=== PATIENT | female | born 1955 | race Caucasian/White ===

== ENCOUNTER 2024-07-12 22:30 | Emergency (ER) | payer OTHER ==
[~2024-07-12] VITALS: Ht 157.5 cm; Wt 68.0 kg
--- NOTE | 2024-07-13 00:25 | NUR ---
CC LEFT WRIST DEFORMITY S/P TRIP AND FALL AT THE [facility]ARK.
[2024-07-13] MEDS ORDERED: HYDROCODONE/APAP 10/325MG TABLET ONE (01:18)
[2024-07-13] MEDS: HYDROCODONE/APAP 10/325MG TABLET PO ONE (01:21)
[2024-07-13] MEDS ORDERED: PROPOFOL 20 ML IV ONE (02:30)
--- NOTE | 2024-07-13 02:59 | NUR ---
Consent signed for the procedure, MD henry
[2024-07-13] MEDS: PROPOFOL 200 MG/20 ML VIAL IV ONE (03:45)
--- NOTE | 2024-07-13 03:45 | NUR ---
Diprivan 50mg IVP given
--- NOTE | 2024-07-13 03:47 | NUR ---
Left wrist reduction initiated by Dr. Scott
[2024-07-13] MEDS ORDERED: NAPR-1009 PO (04:00)
--- NOTE | 2024-07-13 04:10 | NUR ---
Xray at bedside
--- NOTE | 2024-07-13 04:13 | NUR ---
Left arm splint applied with arm sling
--- NOTE | 2024-07-13 04:45 | NUR ---
Patient discharged to home in stable condition. Written and verbal after care instructions given. Patient verbalizes understanding of instruction. IV removed. Catheter intact and site benign. Pressure and 4x4 applied to site. No bleeding noted.
[2024-07-13 04:48] VITALS: BP 121/79; TEMP 98.5; O2SAT 99
== END 2024-07-13 04:49 | disposition home or self-care (01) ==
LOC: ER 22:37
DX: S52.592A Other fractures of lower end of left radius, initial encounter for closed fracture (principal); W01.0XXA Fall on same level from slipping, tripping and stumbling without subsequent striking against object, initial encounter; Y93.89 Activity, other specified; Y92.89 Other specified places as the place of occurrence of the external cause; Y99.8 Other external cause status
CPT/HCPCS: 99285; 25605; 99152; 73110 ×2; J2704; J7030; 73100-TC; G0500